=== PATIENT | female | born 2000 ===

== ENCOUNTER 2019-07-24 18:35 | Inpatient (IN) ==
[2019-07-24 22:11] LABS: Apearance,Urine CLOUDY (Clear); Bacteria,Urine Occasional /HPF (Few); Bilirubin,Urine Negative (Negative); Blood, Urine Large mg/dL (Negative); Glucose,Urine (UA) Negative (Negative); Ketones,Urine 80 mg/dL (Negative); Mucus,Urine Moderate /LPF (Occasional); Nitrite,Urine Negative (Negative); Protein,Urine 30 MG/DL; RBC,Urine 145 /HPF (0-4); Squamous Epithelial Cell,Urine Few /HPF (0-10); Urine Color Amber (Yellow); Urine Specific Gravity 1.025 (1.001-1.035); WBC,Urine 71 /HPF (0-6)
[2019-07-24] MEDS ORDERED: LACTATED RINGERS 1,000 ML IV SCH (23:30)
[2019-07-25] MEDS ORDERED: ONDANSETRON 4 MG/2 ML VIAL IV PRN (06:07)
[2019-07-25] MEDS ORDERED: MEPERIDINE 50 MG/1 ML VIAL IV PRN (06:07)
[2019-07-25] MEDS ORDERED: BUTORPHANOL 2 MG/ML VIAL IV PRN (06:07)
[2019-07-25 06:32] LABS: Basophils % 0.2 % (0.0-0.8); Eosinophils # 0.1 10*3/uL (0.0-0.87); Eosinophils % 1.1 % (0.00-10.9); Hemoglobin 11.9 GM/DL (12.0-16.0); Immature Granulocytes % 0.2 %; Immature Granulocytes Absolute 0.02 #; Lymphocytes # 2.1 10*3/uL (1.4-4.0); Lymphocytes % 25.8 % (21.3-54.2); Mean Corpuscular HGB Conc 32.2 GM/DL (32-36); Mean Corpuscular Volume 84.3 FL (87-102); Monocytes % 6.3 % (1.7-12.7); Neutrophils % 66.4 % (38.7-73.9); Platelet Count 230 T/CUMM (130-400); Red Blood Count 4.39 MC/CUMM (3.8-5.5); Red Cell Distribution Width 15.9 % (9.3-17.3); White Blood Count 8.1 T/CUMM (4-12)
[2019-07-25 06:41] LABS: INR 0.9; Partial Thromboplastin Time 27.3 SECS (20.8-36.0)
[2019-07-25 06:51] LABS: Albumin 2.7 G/DL (3.4-5.0); Bilirubin,Total 1.7 MG/DL (0.2-1.0); Calcium 8.8 MG/DL (8.5-10.1); Total Protein 6.6 G/DL (6.4-8.3)
[2019-07-25] MEDS: LACTATED RINGERS 1,000 ML IV SCH ×2 (07:15→18:22)
[2019-07-26] MEDS ORDERED: hydrOXYzine HCL 25 MG/1 ML VIAL IM PRN (02:16)
[2019-07-26] MEDS ORDERED: NALOXONE 0.4 MG/ML VIAL IV PRN (02:16)
[2019-07-26] MEDS ORDERED: diphenhydrAMINE 50 MG/1 ML VIAL IV PRN ×2 (02:16)
[2019-07-26] MEDS ORDERED: ePHEDrine 50 MG/ML AMP IV PRN (02:16)
[2019-07-26] MEDS ORDERED: PROMETHAZINE 25 MG/1 ML VIAL IM ONE (02:16)
[2019-07-26] MEDS ORDERED: CITRIC ACID/SODIUM CITRATE 30 ML UDCUP PO PRN (02:19)
[2019-07-26] MEDS ORDERED: FAMOTIDINE 20 MG/2 ML VIAL IV PRN (02:20)
[2019-07-26] MEDS ORDERED: fentaNYL 2 MCG/ROPIV 0.2% EPID 100 ML EPIDURAL SCH (02:30)
[2019-07-26] MEDS: LACTATED RINGERS 1,000 ML IV SCH (05:23)
[2019-07-26] MEDS ORDERED: OXYTOCIN/LR 20 UNIT/1,000 ML BAG IV ONE ×2 (09:54→14:11)
[2019-07-26] MEDS ORDERED: miSOPROStoL 200 MCG TABLET ONE (10:37)
[2019-07-26] MEDS ORDERED: LIDOCAINE 1% 50 ML VIAL ONE (10:38)
[2019-07-26] MEDS ORDERED: miSOPROStoL 200 MCG TABLET RECTAL ONE (14:05)
[2019-07-26] MEDS ORDERED: oxyCODONE/ACETAMINOPHEN 5-325 MG TABLET PO PRN ×2 (14:11)
[2019-07-26] MEDS ORDERED: MEASLES/MUMPS/RUBELLA VACCINE 0.5 ML VIAL SUBCUT ONE (14:11)
[2019-07-26] MEDS ORDERED: LANOLIN 50% CREAM 0.3 OZ TUBE TOP PRN (14:11)
[2019-07-26] MEDS ORDERED: DIPH/TET/ACEL PERT BOOSTER VACCINE 0.5 ML VIAL IM ONE (14:11)
[2019-07-26] MEDS ORDERED: RHO(D) IMMUNE GLOBULIN 300 MCG SYRINGE IM ONE (14:11)
[2019-07-26] MEDS ORDERED: BISACODYL 10 MG SUPP RECTAL PRN (14:11)
[2019-07-26] MEDS ORDERED: ACETAMINOPHEN 325 MG TABLET PO PRN (14:11)
[2019-07-26] MEDS ORDERED: BENZOCAINE 20%/MENTHOL 0.5% SPRAY 56 GM CAN TOP PRN (14:11)
[2019-07-26] MEDS ORDERED: WITCH HAZEL PADS 100/JAR TOP PRN (14:11)
[2019-07-26] MEDS ORDERED: ONDANSETRON 4 MG/2 ML VIAL IV PRN (14:11)
[2019-07-26] MEDS ORDERED: HYDROCORTISONE 2.5% RECTAL CREAM 30 GM TUBE TOP PRN (14:11)
[2019-07-26 17:49] LABS: Basophils % 0.1 % (0.0-0.8); Eosinophils % 0.3 % (0.00-10.9); Hemoglobin 10.6 GM/DL (12.0-16.0); Immature Granulocytes % 0.4 %; Immature Granulocytes Absolute 0.06 #; Lymphocytes # 1.2 10*3/uL (1.4-4.0); Lymphocytes % 8.4 % (21.3-54.2); Mean Corpuscular HGB Conc 32.1 GM/DL (32-36); Mean Corpuscular Volume 85.3 FL (87-102); Mean Platelet Volume 12.1 FL (9.6-12.0); Monocytes % 6.7 % (1.7-12.7); Neutrophils % 84.1 % (38.7-73.9); Platelet Count 235 T/CUMM (130-400); Red Blood Count 3.87 MC/CUMM (3.8-5.5); Red Cell Distribution Width 15.8 % (9.3-17.3)
[2019-07-26] MEDS: IBUPROFEN 800 MG TABLET PO PRN (21:40)
[2019-07-26] MEDS: DOCUSATE SODIUM 100 MG CAPSULE PO SCH (22:50)
[2019-07-27 05:49] LABS: Basophils % 0.2 % (0.0-0.8); Eosinophils # 0.1 10*3/uL (0.0-0.87); Hematocrit 30.1 VOL% (35.7-47.0); Hemoglobin 9.6 GM/DL (12.0-16.0); Immature Granulocytes % 0.4 %; Immature Granulocytes Absolute 0.05 #; Lymphocytes # 2.5 10*3/uL (1.4-4.0); Lymphocytes % 20.4 % (21.3-54.2); Mean Corpuscular HGB Conc 31.9 GM/DL (32-36); Mean Corpuscular Volume 85.3 FL (87-102); Mean Platelet Volume 12.2 FL (9.6-12.0); Monocytes % 7.7 % (1.7-12.7); Neutrophils % 70.3 % (38.7-73.9); Platelet Count 204 T/CUMM (130-400); Red Blood Count 3.53 MC/CUMM (3.8-5.5); Red Cell Distribution Width 15.9 % (9.3-17.3)
[2019-07-27] MEDS: DOCUSATE SODIUM 100 MG CAPSULE PO SCH ×2 (08:39→21:57)
[2019-07-27] MEDS: IBUPROFEN 800 MG TABLET PO PRN (21:57)
[2019-07-28] MEDS: DOCUSATE SODIUM 100 MG CAPSULE PO SCH (08:50)
[2019-07-28 11:20] VITALS: BP 136/78
[2019-07-30 23:31] LABS: Source VAGINAL
== END 2019-07-28 14:00 | disposition home or self-care (01) | DRG 560 ==
LOC: N.LDOUT 18:35 → N.LD 18:37 → N.OB 07-26 22:16
PROVIDERS: ADMIT Obstetrics & Gynecology; ATTEND Obstetrics & Gynecology